=== PATIENT | male | born 1990 | race Caucasian/White ===

== ENCOUNTER 2016-10-25 05:22 | Emergency (ER) | payer BC ==
[~2016-10-25] VITALS: Ht 167.6 cm; Wt 62.6 kg
[~2016-10-25 05:22] MED LIST: NAPROXEN500 MG PO; PEN-VEE K,VEET500 MG PO
[2016-10-25 05:32] VITALS: BP 151/97
[2016-10-25] MEDS ORDERED: AMOXICILLIN500 MG PO (06:17)
[2016-10-25] MEDS ORDERED: TYLENOL WITH C1 EACH PO (06:17)
== END 2016-10-25 06:50 | disposition home or self-care (01) ==
LOC: EME 05:22
DX: K08.89 Other specified disorders of teeth and supporting structures (principal); K02.9 Dental caries, unspecified; F17.200 Nicotine dependence, unspecified, uncomplicated
CPT/HCPCS: 99281; 99283

== ENCOUNTER 2017-06-12 07:13 | Emergency (ER) | payer BC ==
[~2017-06-12] VITALS: Ht 167.6 cm; Wt 65.9 kg
[~2017-06-12 07:13] MED LIST changes: +AMOXICILLIN500 MG PO; +TYLENOL WITH C1 EACH PO
[2017-06-12] MEDS ORDERED: CLARITIN-D 21 TABLET PO (08:05)
[2017-06-12] MEDS ORDERED: DELTASONE20 M1 PO (08:05)
[2017-06-12] MEDS ORDERED: AMOXICILLIN500 M1 PO (08:06)
[2017-06-12 08:30] VITALS: BP 138/89
== END 2017-06-12 08:30 | disposition home or self-care (01) ==
LOC: EME 07:13
DX: H65.92 Unspecified nonsuppurative otitis media, left ear (principal); F17.200 Nicotine dependence, unspecified, uncomplicated
CPT/HCPCS: 99281; 99282